=== PATIENT | male | born 2000 | race Caucasian/White ===

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

== ENCOUNTER 2019-05-24 11:21 | Emergency (ER) | payer MEDICAID ==
[~2019-05-24] VITALS: Ht 160 cm; Wt 64.0 kg
[~2019-05-24 11:21] MED LIST: DOCU-131 PO; HYDR-3240 PO; ONDA4TAB10 PO
[2019-05-24] MEDS ORDERED: DEXAMETHASONE 4 MG/ML, 1ML IV ONE (12:30)
[2019-05-24] MEDS ORDERED: SODIUM CHLORIDE FLUSH 10ML SYR IVF ONE (12:30)
[2019-05-24] MEDS ORDERED: HYDROcodone/APAP 7.5-325MG/15ML UDC PO ONE (12:30)
[2019-05-24] MEDS ORDERED: CEFTRIAXONE PMX 1GM/50ML 50 ML IVPB ONE (12:30)
[2019-05-24 12:42] LABS: BASOPHILS # (AUTO) 0.03 x10^3/uL (0-0.3); BASOPHILS % (AUTO) 0 % (0-1); EOSINOPHILS # (AUTO) 0.08 x10^3/uL (0-0.8); EOSINOPHILS % (AUTO) 1 % (1-7); LYMPHOCYTES # (AUTO) 1.41 x10^3/uL (1-6.1); LYMPHOCYTES % (AUTO) 14 % (22-44); MD NO; MEAN CORPUSCULAR HEMOGLOBIN 32.3 pg (27.5-34.5); MEAN CORPUSCULAR HGB CONC 34.1 g/dL (33.2-36.2); MEAN CORPUSCULAR VOLUME 94.8 fL (81-97); MEAN PLATELET VOLUME 7.3 fL (7.4-10.4); MONOCYTES # (AUTO) 0.93 x10^3/uL (0-1.4); MONOCYTES % (AUTO) 9 % (2-9); NEUTROPHILS # (AUTO) 7.99 x10^3/uL (1.8-8.0); NEUTROPHILS % (AUTO) 77 % (42-75); PLATELET COUNT 257 x10^3/uL (130-400); RED BLOOD COUNT 5.09 x10^6/uL (4.38-5.82); RED CELL DISTRIBUTION WIDTH 11.9 % (9.4-14.8)
[2019-05-24] MEDS ORDERED: CEFTRIAXONE PMX 1GM/50ML 50 ML ONE (12:50)
[2019-05-24] MEDS ORDERED: HYDROcodone/APAP 7.5-325MG/15ML UDC ONE (12:50)
[2019-05-24] MEDS ORDERED: DEXAMETHASONE 4 MG/ML, 5ML ONE (12:50)
--- NOTE | 2019-05-24 13:12 | NUR ---
PT TO CT
[2019-05-24] MEDS ORDERED: LIDOCAINE-MPF 1%, 5ML ONE (15:25)
[2019-05-24] MEDS ORDERED: BENZOCAINE 20% SPRAY 0.5ML ONE ×2 (15:25→15:55)
--- NOTE | 2019-05-24 16:02 | NUR ---
LEFT TONSILAR ABCESS DRAINED BY PA WITH ASSISTANCE. PT TOLERATED WELL, NO COMPLAINTS AT THIS TIME.
[2019-05-24 16:03] VITALS: BP 122/75
== END 2019-05-24 16:26 | disposition home or self-care (01) ==
LOC: ED 13:24
DX: J36 Peritonsillar abscess (principal)
CPT/HCPCS: 36415; 42700; 70491; 85025; 96365; 96375; 99284; J0696; J1100